=== PATIENT | male | born 1965 | race African-American/Black ===

== ENCOUNTER 2018-05-11 11:01 | Emergency (ER) | payer MEDICAID ==
[~2018-05-11] VITALS: Ht 177.8 cm; Wt 75.0 kg
[~2018-05-11 11:01] MED LIST: FLEXERIL PO; GABA-531 PO; HYDR-4005 PO; TRAM50TA3 PO
[2018-05-11] MEDS ORDERED: IBUPROFEN 600MG TABLET PO ONE (12:15)
[2018-05-11] MEDS ORDERED: TETANUS, DIPHTHERIA, PERTUSSIS VAC/PF 0.5ML (>7YR OLD) IM ONE (12:15)
[2018-05-11 12:19] VITALS: BP 136/88
== END 2018-05-11 12:43 | disposition home or self-care (01) ==
LOC: ER 11:01
DX: S81.851A Open bite, right lower leg, initial encounter (principal); S81.811A Laceration without foreign body, right lower leg, initial encounter; W54.0XXA Bitten by dog, initial encounter; Y93.9 Activity, unspecified; Y92.9 Unspecified place or not applicable
CPT/HCPCS: 12002; 90471; 90715; 99283; Z7610

== ENCOUNTER 2018-05-30 15:24 | Emergency (ER) | payer MEDICAID ==
[~2018-05-30] VITALS: Ht 177.8 cm; Wt 75.0 kg
[2018-05-30 20:17] VITALS: BP 0/0
== END 2018-05-30 20:15 | disposition home or self-care (01) ==
LOC: ER 15:24
DX: Z48.00 Encounter for change or removal of nonsurgical wound dressing (principal); R03.0 Elevated blood-pressure reading, without diagnosis of hypertension
CPT/HCPCS: 99283